=== PATIENT | female | born 1985 ===

== ENCOUNTER 2020-04-28 09:10 | Outpatient (REF) | payer OTHER, SELFPAY | END 2020-04-28 09:11 | disposition home or self-care (01) | LOC: HO.LAB 09:10 | PROVIDERS: Visit Provider Internal Medicine | DX: Z20.822 Contact with and (suspected) exposure to COVID-19 (principal) | CPT/HCPCS: 36415; C9803; U0003 ==

== ENCOUNTER 2020-08-21 12:55 | Outpatient (REF) | payer OTHER, SELFPAY ==
[2020-08-21 13:33] LABS: COVID-19 Test Negative (Negative); IDNOW Serial# 55D5AD1C
== END 2020-08-21 12:56 | disposition home or self-care (01) ==
LOC: HO.LAB 12:55
PROVIDERS: Visit Provider Internal Medicine
DX: Z20.822 Contact with and (suspected) exposure to COVID-19 (principal)
CPT/HCPCS: 36415; 87635; C9803

== ENCOUNTER 2020-11-30 14:46 | Outpatient (REF) | payer OTHER, SELFPAY | END 2020-11-30 14:47 | disposition home or self-care (01) | LOC: HO.LAB 14:46 | PROVIDERS: PCP Internal Medicine; Visit Provider Internal Medicine | DX: Z20.822 Contact with and (suspected) exposure to COVID-19 (principal) | CPT/HCPCS: C9803; U0003; U0005 ==

== ENCOUNTER 2021-01-12 10:02 | Outpatient (REF) | payer OTHER, SELFPAY ==
[2021-01-12 12:27] LABS: MANUAL DIFF FLAG NO
[2021-01-12 12:34] LABS: Basophils Percent Auto 0.3 % (0-2); Eosinophils Absolute Auto 0.2 X10*3/uL (0.0-0.4); Eosinophils Percent Auto 2.1 % (0-4); Hematocrit 38.7 % (37-47); Hemoglobin 12.5 g/dl (12.0-16.0); Imm Gran Abs Auto 0.02 X10*3/uL (0.00-0.03); Imm Gran Pct Auto 0.2 % (0.0-0.4); Lymphocytes Absolute Auto 2.2 X10*3/uL (1.2-4.9); Lymphocytes Percent Auto 22.6 % (20-40); Mean Corpuscular HGB Conc 32.3 g/dl (31.0-35.0); Mean Corpuscular Hemoglobin 26.8 pg (27.0-33.0); Mean Platelet Volume 9.5 fL (9.4-12.3); Monocytes Absolute Auto 0.8 X10*3/uL (0.1-1.2); Monocytes Percent Auto 8.1 % (2-11); Neutrophils Absolute Auto 6.5 X10*3/uL (2.0-8.3); Neutrophils Percent Auto 66.7 % (45-73); Platelet Count 363 X10*3/uL (160-400); Red Blood Count 4.66 X10*6/uL (4.20-5.50); Red Cell Distribution Width 14.3 % (11.0-16.0); White Blood Count 9.8 X10*3/uL (4.8-10.8)
[2021-01-12 12:59] LABS: Alanine Aminotransferase 17 U/L (0-31); Anion Gap 13 (12-20); Aspartate Amino Transferase 18 U/L (5-31); Blood Urea Nitrogen 18 mg/dL (9-16); Calcium 9.8 mg/dL (8.4-10.2); Carbon Dioxide 26 mmol/L (22-29); Chloride 105 mmol/L (96-108); Cholesterol 154 mg/dL; Estimated Glomerular Filt Rate > 60; Glucose Fasting 91 mg/dL (60-99); HDL Cholesterol 78 mg/dL; LDL Cholesterol Calculated 65 mg/dl; Potassium 4.5 mmol/L (3.3-5.1); Sodium 139 mmol/L (135-145); Triglycerides 57 mg/dL
[2021-01-12 13:24] LABS: TSH reflex Free T4 0.29 uIU/mL (0.32-4.0); Vitamin D 25-OH Total 34.3 ng/mL (>30)
[2021-01-12 13:28] LABS: Folate 8.9 ng/mL (> or = 4.0); Vitamin B12 368 pg/mL (200-900)
[2021-01-12 14:11] LABS: Free T4 (Free Thyroxine) 0.97 ng/dL (0.71-1.85)
== END 2021-01-12 10:03 | disposition home or self-care (01) ==
LOC: HO.HMGCLDS 10:02
PROVIDERS: PCP Internal Medicine; Visit Provider Internal Medicine
DX: Z00.01 Encounter for general adult medical examination with abnormal findings (principal); F41.8 Other specified anxiety disorders; I10 Essential (primary) hypertension
CPT/HCPCS: 36415; 80048; 80061; 82306; 82607; 82746; 84439; 84443; 84450; 84460; 85025

== ENCOUNTER 2023-10-28 15:16 | Outpatient (AMB) | payer BC, SELFPAY ==
--- NOTE | 2023-10-28 15:18 | MHC.PC.OV ---
Vital Signs 10/28/23 15:20 Height 4 ft 11.5 in Weight 161 lb BMI 32.0 BP 124/82 Blood Pressure Location Lt brachial Position Sitting Pulse 89 Pulse Source Pulse Oximeter Pulse Oximetry (%) 97 Oxygen Delivery Method Room Air Intake Visit Reasons: Annual PE/Last PE 2020 Intake Note: Pt is here for annual PE. Mammogram and Pap due Allergies No Known Allergies [No Known Allergies*] Allergy (Verified 10/28/23 15:34) Medication List - Last Reconciled 10/28/23 by ELANA Patel cholecalciferol (vitamin D3) 50 mcg PO DAILY dextroamphetamine-amphetamine 30 mg ER (Adderall XR) 1 cap PO QAM diclofenac sodium 1% 2 grams topical QID escitalopram oxalate 20 mg PO DAILY hydroxyzine pamoate 25 mg PO TID PRN levonorgestrel (Mirena) intrauterine lorazepam 0.5 mg PO DAILY PRN polymyxin B sulf-trimethoprim 10,000 unit- 1 mg/mL (Polytrim) 1 drp ophthalmic (eye) QID 7 days valacyclovir 500 mg PO BID Tobacco use date assessed: 10/28/23 Dental Screening Dental Screen Date: 10/28/23 Did you have a dental visit in the last 12 months?: Yes Did you have a dental problem in the last 6 months where you did not have access to dental care?: No Was dental information given to patient?: Patient has dentist HPI HPI Comments History of Present Illness Details Patient is a 38-year-old female who I am meeting for the 1st time in for physical exam. Patient believes that she is up-to-date with tetanus vaccine, do not have records on this, she will sign release so we can obtain them from OBG[facility] at [facility]. Patient has establish care with [facility]. For well woman visits and Pap smears Patient is due for mammogram will order. She has a past medical history significant for: Anxiety and depression-patient currently in the process of finding therapist and psychiatrist. She feels that her anxiety has been in general controlled, however recent life events have caused an increase in anxiety. She denies SI/HI. Would like to wait until she has a psychiatrist before she starts medication for this. Diminished hearing bilaterally: Patient has history of service. Has noticed progressive hearing difficulty over the past several years. Will give referral to speech and hearing. Patient will also be extracted to utilize earwax removal drops. Obesity-patient has history of obesity, has utilize phentermine-topiramate with good effect. Will draw labs to assess kidney and liver function and restart medication if labs appear normal. Left wrist pain-patient works on the computer, has chronic left wrist pain that has gotten progressively worse. Denies tingling or numbness. No trauma to the area. Will obtain x-ray. Will give diclofenac topical gel PFSH Medical History Achilles tendinitis of left lower extremity ADHD (attention deficit hyperactivity disorder), combined type Depression with anxiety Incompetent cervix Obesity (BMI 30.0-34.9) Stillborn, normal Surgical History Hx of tonsillectomy History of cervical cerclage Family History Father Seizure Depression Substance use disorder Mother Depression Mental health disorder Social History Housing: House Patient Tobacco Use Status: Never used Tobacco e-Cigarette/Vaping Use: Never Used service: No Current occupational status: employed Cognitive needs: No Hearing needs: No Vision needs: No Questionnaire PHQ-9 Over the last 2 weeks, how often have you been bothered by any of the following problems? 1. Little interest or pleasure in doing things: several days 2. Feeling down, depressed, or hopeless: several days 3. Trouble falling or staying asleep, or sleeping too much: more than half the days 4. Feeling tired or having little energy: more than half the days 5. Poor appetite or overeating: more than half the days 6. Feeling bad about yourself - or that you are a failure or have let yourself or your family down: several days 7. Trouble concentrating on things, such as reading the newspaper or watching television: several days 8. Moving or speaking so slowly that other people could have noticed. Or the opposite - being so fidgety or restless that you have been moving around a lot more than usual: several days 9. Thoughts that you would be better off or of hurting yourself in some way: not at all Total score: 11 Depression Screening Interpretation: Positive Depression Screening Follow-up: Existing condition (Establishing care with therapy and Psychiatry.) Depression Screening Done: Yes 40938 - PHQ-9 Billing: Yes Source: Developed by Drs. Rashaun Nguyen, Shonda Neil, Villa Aguilera and colleagues, with an educational isis from [employer]. Thrive Questionnaire Date Thrive assessed: 10/28/23 I am a: Patient What is your living situation today?: I have a steady place to live Within the past 12 months, did the food you bought not last and you didn't have the money to get more?: Never true Within the past 12 months, did you worry whether your food would run out before you got money to buy more?: Never true Do you have trouble paying for medicines?: I choose not to answer this question Do you have trouble getting transportation to medical appointments?: No Do you have trouble paying your heating and electricity bill?: I choose not to answer this question Do you have trouble taking care of your child, family member or friend?: No Do you have trouble with day-to-day activities such as bathing, preparing meals, shopping, managing finances, etc.?: I choose not to answer this question Are you currently unemployed and looking for a job?: No Are you interested in more education?: I choose not to answer this question Please select the resources that you would like help with: Housing/Custodial Currently or been in a relationship where the following occur: No concerns reported THRIVE Score: 0 AUDIT C Alcohol Use Questionnaire (AUDIT-C) 1. How often do you have a drink containing alcohol?: Monthly or less 2. How many drinks containing alcohol do you have on a typical day when you are drinking?: 1 or 2 3. How often do you have six or more drinks on one occasion?: Never Total Score: 1 Score Reviewed/Action Taken: No CHAVA-7 AMB Questionnaire CHAVA-7 Date CHAVA - 7 assessed: 10/28/23 Feeling nervous, anxious, or on edge: 2 = More than half the days Not being able to stop or control worryin = More than half the days Worrying too much about different things: 2 = More than half the days Trouble relaxin = Several days Being so restless that it is hard to sit still: 1 = Several days Becoming easily annoyed or irritable: 1 = Several days Feeling afraid as if something awful might happen: 0 = Not at all Total CHAVA-7 score (0-4 normal; 5-9 mild; 10-14 moderate; 15-21 severe): 9 Source: Developed by Drs. Rashaun Nguyen, Shonda Neil, Villa Aguilera and colleagues, with an educational isis from [employer]. CHAVA-7 Assessment Billing CHAVA-7 Assessment Tool: CHAVA-7 Assessment 72491 (Establishing care with therapy and Psychiatry) Review of Systems Const All systems reviewed & are unremarkable except as noted in HPI and below Physical exam (Primary Care) Tobacco/Smoking Status: Tobacco use Status Tobacco use date assessed 06/19/21 10/28/23 15:18 Patient Tobacco Use Status Never used Tobacco 10/28/23 15:18 e-Cigarette/Vaping Use Never Used 10/28/23 15:18 Depression Screening Interpretation: Positive Depression Screening Follow-up: Existing condition (Establishing care with therapy and Psychiatry.) Thrive Assessment: Date of Thrive Assessment Date Thrive assessed 06/19/21 10/28/23 15:18 Currently or been in a relationship where the following occur: No concerns reported Const Other: Appearance: Alert.? Oriented X3.? No acute distress.? Head: Normocephalic, atraumatic, no step-offs or deformities Eyes: Pupils equal, round and reactive to light.? ENT: Pharynx normal.?Scant cerumen impaction bilaterally. Neck: Normal inspection.? Neck supple.?Full ROM. CVS: Normal heart rate and rhythm.? Pulses normal.? Respiratory: No respiratory distress.? Breath sounds normal.? Abdomen: Soft and nontender.? Skin: Skin warm and dry.? Normal skin color.? Normal skin turgor.? Extremities: No lower extremity edema.? No calf ttp. 5/5 strength to bilateral upper and lower extremities Back: No midline tenderness, no C-spine tenderness, full range of motion, no CVA tenderness bilaterally Neuro: Oriented X 3.? No motor deficit.? No sensory deficit. CN 2-12 intact Assessment and Plan Assessment & Plan (1) Physical exam: Comment: Patient believes that she is up-to-date with tetanus vaccine, do not have records on this, she will sign release so we can obtain them from OBGYN at [facility]. Patient has establish care with [facility]. For well woman visits and Pap smears Patient is due for mammogram will order. She has a past medical history significant for: Anxiety and depression-patient currently in the process of finding therapist and psychiatrist. She feels that her anxiety has been in general controlled, however recent life events have caused an increase in anxiety. She denies SI/HI. Would like to wait until she has a psychiatrist before she starts medication for this. Diminished hearing bilaterally: Patient has history of service. Has noticed progressive hearing difficulty over the past several years. Will give referral to speech and hearing. Patient will also be extracted to utilize earwax removal drops. Obesity-patient has history of obesity, has utilize phentermine-topiramate with good effect. Will draw labs to assess kidney and liver function and restart medication phentermine-topiramte. Left wrist pain-patient works on the computer, has chronic left wrist pain that has gotten progressively worse. Denies tingling or numbness. No trauma to the area. Will obtain x-ray. Will give diclofenac topical gel Code(s): Z00.00 - Encounter for general adult medical examination without abnormal findings (2) Left wrist pain: Code(s): M25.532 - Pain in left wrist (3) Decreased hearing of both ears: Code(s): H91.93 - Unspecified hearing loss, bilateral (4) Obesity (BMI 30.0-34.9): Code(s): E66.9 - Obesity, unspecified (5) Depression with anxiety: Comment: ff'd at [facility] Code(s): F41.8 - Other specified anxiety disorders Orders: Orders Vitamin D 25-OH (D2 and D3) Today Z13.21 - Encounter for screening for nutritional disorder Vitamin B6 Today Z13.21 - Encounter for screening for nutritional disorder Vitamin B12 Today Z13.21 - Encounter for screening for nutritional disorder UA CC w/rflx Micro + Cult Today Z13.89 - Encounter for screening for other disorder TSH reflex Free T4 Today Z13.29 - Encounter for screening for other suspected endocrine disorder MM tomosynthesis screening BI Today Z12.31 - Encounter for screening mammogram for malignant neoplasm of breast Lipid Panel Today Z13.220 - Encounter for screening for lipoid disorders Complete Blood Count Auto Diff Today Z13.0 - Encounter for screening for diseases of the blood and blood-forming organs and certain disorders involving the immune mechanism Comprehensive Met. Panel Today Z91.89 - Other specified personal risk factors, not elsewhere classified XR wrist LT 2V Today M25.532 - Pain in left wrist Referrals Speech and Hearing Referral H91.93 - Unspecified hearing loss, bilateral Medications: New phentermine-topiramate 3.75-23 mg ER 1 cap PO DAILY 30 days 30 caps 0RF diclofenac sodium 1% apply to single elbow, wrist or hand; for hand includes palm/fingers/back of hand 2 grams topical QID 100 grams 0RF cholecalciferol (vitamin D3) 50 mcg PO DAILY 90 caps 0RF Coding Level of Care Code New Pt Prev Care 40-64y(38156) Diagnoses Physical exam Z00.00 Left wrist pain M25.532 Decreased hearing of both ears H91.93 Obesity (BMI 30.0-34.9) E66.9 Depression with anxiety F41.8 Additional Codes CHAVA-7 Assessment Billing - CHAVA-7 Assessment Tool: CHAVA-7 Assessment 10274 ([id number]) Time Spent (min) 28
[2023-10-28 15:20] VITALS: BP 124/82; PULSE 89; O2SAT 97; BMI 32.0
== END 2023-10-28 16:50 | disposition home or self-care (01) ==
PROVIDERS: PCP Internal Medicine; Visit Provider Nurse Practitioner Primary Care
DX: Z00.00 Encounter for general adult medical examination without abnormal findings (principal); M25.532 Pain in left wrist; E66.9 Obesity, unspecified; Z68.32 Body mass index [BMI] 32.0-32.9, adult; H91.93 Unspecified hearing loss, bilateral; F41.8 Other specified anxiety disorders
CPT/HCPCS: 99396

== ENCOUNTER 2023-10-30 08:34 | Outpatient (REF) | payer BC, SELFPAY ==
[2023-10-30 10:10] LABS: MANUAL DIFF FLAG NO
[2023-10-30 10:16] LABS: Basophils Percent Auto 0.3 % (0-2); Eosinophils Absolute Auto 0.2 X10*3/uL (0.0-0.4); Hematocrit 39.1 % (37.0-47.0); Imm Gran Abs Auto 0.02 X10*3/uL (0.00-0.03); Imm Gran Pct Auto 0.3 % (0.0-0.4); Lymphocytes Percent Auto 32.4 % (20-40); Mean Corpuscular HGB Conc 33.2 g/dl (31.0-35.0); Mean Corpuscular Hemoglobin 28.5 pg (27.0-33.0); Mean Corpuscular Volume 85.7 fL (80.0-98.0); Mean Platelet Volume 9.7 fL (9.4-12.3); Monocytes Absolute Auto 0.6 X10*3/uL (0.1-1.2); Monocytes Percent Auto 8.8 % (2-11); Neutrophils Absolute Auto 3.4 x10*3/uL (2.0-8.3); Neutrophils Percent Auto 55.2 % (45-73); Platelet Count 302 X10*3/uL (160-400); Red Blood Count 4.56 X10*6/uL (4.20-5.50); Red Cell Distribution Width 13.8 % (11.0-16.0); White Blood Count 6.2 X10*3/uL (4.8-10.8)
[2023-10-30 10:31] LABS: Appearance Urine Clear; Color Urine Yellow; Glucose Urine UA Negative (Negative); Leukocyte Esterase Urine Moderate (2+) (Negative); Nitrite Urine Negative (Negative); PH 5.5 (5.0-9.0); Specific Gravity - Urine 1.025 (1.005-1.025); UMIC TRIGGER UACC YES; Urine Blood Negative (Negative); Urine Ketones Negative (Negative); Urine Protein Negative (Neg-Trace)
[2023-10-30 10:38] LABS: Bacteria Urine 2+ (None Seen); RBC Urine 0-2 /HPF (0-2); UACC Culture Trigger YES; WBC Urine 21-50 /HPF (0-5)
[2023-10-30 10:46] LABS: Alanine Aminotransferase 11 U/L (0-31); Albumin Level 4.5 g/dL (3.5-5.0); Alkaline Phosphatase 66 U/L (39-117); Anion Gap 13 (12-20); Aspartate Amino Transferase 13 U/L (5-31); Bilirubin Total 0.8 mg/dL (0.0-1.0); Blood Urea Nitrogen 20 mg/dL (9-16); Calcium 9.8 mg/dL (8.4-10.2); Carbon Dioxide 24 mmol/L (22-29); Chloride 108 mmol/L (96-108); Cholesterol 135 mg/dL (<200); Estimated Glomerular Filt Rate > 60; Glucose Random 90 mg/dL (60-115); HDL Cholesterol 54 mg/dL (>40); LDL Cholesterol Calculated 74 mg/dL (<100); Potassium 4.2 mmol/L (3.3-5.1); Sodium 141 mmol/L (135-145); Total Protein 7.3 g/dL (6.5-8.0); Triglycerides 38 mg/dL (<150)
[2023-10-30 10:48] LABS: TSH reflex Free T4 0.34 uIU/mL (0.32-4.0)
[2023-10-30 11:12] LABS: Vitamin B12 392 pg/mL (200-900)
[2023-11-03 15:47] LABS: Vitamin D 25-OH, D2 <4 ng/mL; Vitamin D 25-OH, D3 19 ng/mL; Vitamin D 25-OH, Total 19 ng/mL (30-100)
== END 2023-10-30 08:35 | disposition home or self-care (01) ==
LOC: HO.HMGCLDS 08:34
PROVIDERS: PCP Internal Medicine; Visit Provider Nurse Practitioner Primary Care
DX: Z13.0 Encounter for screening for diseases of the blood and blood-forming organs and certain disorders involving the immune mechanism (principal); Z13.220 Encounter for screening for lipoid disorders; Z13.21 Encounter for screening for nutritional disorder; Z13.29 Encounter for screening for other suspected endocrine disorder; Z91.89 Other specified personal risk factors, not elsewhere classified
CPT/HCPCS: 36415; 80053; 80061; 81001; 82306; 82607; 84207; 84443; 85025; 87086

== ENCOUNTER 2024-01-21 10:18 | Outpatient (AMB) | payer BC, SELFPAY ==
--- NOTE | 2024-01-21 11:14 | MHC.OFFWIV ---
Intake Vital Signs 01/21/24 11:16 Height 4 ft 11.5 in Weight 156 lb BMI 31.0 BP 120/80 Blood Pressure Location Rt brachial Position Sitting Pulse 71 Pulse Source Pulse Oximeter Pulse Oximetry (%) 98 Oxygen Delivery Method Room Air Intake Visit Reasons: EP has a lump on her throat Intake Note: Patient here for lump on throat that is hard which she noticed on Friday and last night it became painful. Patient Tobacco Use Status: Never used Tobacco Allergies No Known Allergies [No Known Allergies*] Allergy (Verified 01/21/24 11:18) Do you need a note to return to daycare/school/sports/work: No HPI EP has a lump on her throat HPI Details This note is constructed using voice recognition software. While every effort has been made to ensure accuracy, hotel registration clerk errors may have been included. The patient is a 38 year old female who presents to the clinic today with complaints of painful lump in the inside of her mouth since Friday, with worsening pain. She notes that she has a crown that needs to be removed, and does feel it may be contributing to her symptoms. She noticed a small lump on the inside of her mouth, that seems to have grown slightly and have some redness. She denies fever, chills, cough, shortness of breath, difficulty swallowing. [facility] Medical History (Updated 11/07/23 @ 03:50 by Radha Lion MD) Vitamin D deficiency Achilles tendinitis of left lower extremity Obesity (BMI 30.0-34.9) Depression with anxiety Incompetent cervix ADHD (attention deficit hyperactivity disorder), combined type Stillborn, normal Surgical History Hx of tonsillectomy History of cervical cerclage Family History Father Seizure Depression Substance use disorder Mother Depression Mental health disorder Social History Housing: House Patient Tobacco Use Status: Never used Tobacco e-Cigarette/Vaping Use: Never Used service: No Current occupational status: employed Cognitive needs: No Hearing needs: No Vision needs: No Review of Systems Const All systems reviewed & are unremarkable except as noted in HPI and below Physical Exam Vital Signs: Last Vital Signs Pulse 71 01/21/24 11:16 BP 120/80 01/21/24 11:16 Pulse Ox 98 01/21/24 11:16 Oxygen Delivery Method Room Air 01/21/24 11:16 BMI result Body Mass Index 31.0 Const General: cooperative, healthy appearing, comfortable, no acute distress and alert Orientation/consciousness: patient oriented x3 Limitations: no limitations HEENT Head: Yes normal to inspection and Yes normocephalic Ears: hearing grossly normal bilaterally General nose exam: Normal external nose present Face and sinus: Yes normal facial exam and Yes sinuses nontender Mouth: Normal oral and palatal mucosa present and tongue normal Teeth and gingiva: dentition normal Teeth image: 1. Approximately 3 mm area raised, erythematous, tender to palpation Throat: Yes posterior oropharynx normal Eyes General: appearance normal, both eyes and all related structures Neck Neck: Yes normal visual inspection and Yes full ROM Resp Effort & Inspection: normal respiratory effort and able to speak in complete sentences Auscultation: clear to auscultation bilaterally Cardio Jugular venous distension: no JVD Palpation: normal PMI Rate: regular rate Heart sounds: S1 normal heart sound present, S2 normal heart sound present, no click, no gallops, no murmurs and no rubs Skin General skin exam: no rashes or lesions noted, elasticity normal and turgor normal Neuro General: patient oriented x3 Psych Appearance: grossly normal Mental Status: mental status grossly normal Speech and movement: Normal speech and movement present Affect: normal affect Assessment & Plan Assessment & Plan (1) Dental infection: Code(s): K04.7 - Periapical abscess without sinus Plan: Antibiotics sent to requested pharmacy. Advised patient to take until complete. Advised patient to follow up with worsening or failure to resolve. Plan See above for full details and plan. Medications: New amoxicillin-pot clavulanate 875-125 mg 1 tab PO BID 7 days 14 tabs 0RF Coding Level of Care Code Est Pt Level 3 (04573) Diagnoses Dental infection K04.7
[2024-01-21 11:16] VITALS: BP 120/80; PULSE 71; O2SAT 98; BMI 31.0
== END 2024-01-21 11:37 | disposition home or self-care (01) ==
PROVIDERS: PCP Internal Medicine; Visit Provider Registered Nurse
DX: K04.7 Periapical abscess without sinus (principal)

== ENCOUNTER → 2024-01-21 10:18 | Outpatient (BNVA) | payer BC, SELFPAY | PROVIDERS: PCP Internal Medicine; Visit Provider Registered Nurse ==

== ENCOUNTER 2024-02-26 08:15 | Outpatient (AMB) | payer BC, SELFPAY ==
--- NOTE | 2024-02-26 08:23 | MHC.PC.OV ---
Vital Signs 02/26/24 08:25 Height 4 ft 11.5 in Weight 158 lb BMI 31.4 BP 96/80 Blood Pressure Location Lt brachial Position Sitting Pulse 76 Pulse Source Pulse Oximeter Pulse Oximetry (%) 96 Oxygen Delivery Method Room Air Intake Visit Reasons: panic attacks Intake Note: Pt is here today c/o panic attacks Allergies No Known Allergies [No Known Allergies*] Allergy (Verified 02/29/24 16:53) Medication List - Last Reconciled 02/26/24 by Radha Lion MD levonorgestrel (Mirena) intrauterine Tobacco use date assessed: 02/26/24 Dental Screening Dental Screen Date: 02/26/24 Did you have a dental visit in the last 12 months?: Yes Did you have a dental problem in the last 6 months where you did not have access to dental care?: No Was dental information given to patient?: Patient has dentist HPI panic attacks HPI Details 38-year-old lady here today complaining of frequent panic attacks. Has been diagnosed with ADHD, depression, and in generalized anxiety disorder, previously was being seen by psychiatrist and a therapist several years ago and was placed on Lexapro, bupropion and as needed lorazepam. Patient however has not seen them in 1 year since she lost her insurance. Now has a new insurance from her employer, and has an appointment to see a new psychiatrist on 03/16/24 , Laura Caal as psychiatric nurse practitioner with [facility]. He was noted as well on last fasting labs done that she has low vitamin-D level and elevated vitamin B6. Will need to recheck levels again. Has history of recurrent cold sores, needs a refill prescription for valacyclovir to take as needed for acute attacks [facility] Medical History (Updated 02/29/24 @ 16:59 by Radha Lion MD) Recurrent cold sores Hypervitaminosis B6 Vitamin B6 deficiency Vitamin D deficiency Achilles tendinitis of left lower extremity Obesity (BMI 30.0-34.9) Depression with anxiety Incompetent cervix ADHD (attention deficit hyperactivity disorder), combined type Stillborn, normal Surgical History Hx of tonsillectomy History of cervical cerclage Family History Father Seizure Depression Substance use disorder Mother Depression Mental health disorder Social History Housing: House Patient Tobacco Use Status: Never used Tobacco e-Cigarette/Vaping Use: Never Used service: No Current occupational status: employed Cognitive needs: No Hearing needs: No Vision needs: No Female Reproductive History Menstrual Other: Sees a new press hand, already has an appointment to see them in [address] [place] [address] Questionnaire PHQ-9 Over the last 2 weeks, how often have you been bothered by any of the following problems? 1. Little interest or pleasure in doing things: several days 2. Feeling down, depressed, or hopeless: several days 3. Trouble falling or staying asleep, or sleeping too much: several days 4. Feeling tired or having little energy: several days 5. Poor appetite or overeating: several days 6. Feeling bad about yourself - or that you are a failure or have let yourself or your family down: several days 7. Trouble concentrating on things, such as reading the newspaper or watching television: not at all 8. Moving or speaking so slowly that other people could have noticed. Or the opposite - being so fidgety or restless that you have been moving around a lot more than usual: not at all 9. Thoughts that you would be better off or of hurting yourself in some way: not at all Total score: 6 Depression Screening Interpretation: Positive Depression Screening Follow-up: Existing condition (Establishing care with therapy and Psychiatry.) Depression Screening Done: Yes 19508 - PHQ-9 Billing: Yes Source: Developed by Drs. Rashaun Nguyen, Shonda Neil, Villa Aguilera and colleagues, with an educational isis from [employer]. Thrive Questionnaire Date Thrive assessed: 10/28/23 I am a: Patient What is your living situation today?: I have a steady place to live Within the past 12 months, did the food you bought not last and you didn't have the money to get more?: Never true Within the past 12 months, did you worry whether your food would run out before you got money to buy more?: Never true Do you have trouble paying for medicines?: I choose not to answer this question Do you have trouble getting transportation to medical appointments?: No Do you have trouble paying your heating and electricity bill?: I choose not to answer this question Do you have trouble taking care of your child, family member or friend?: No Do you have trouble with day-to-day activities such as bathing, preparing meals, shopping, managing finances, etc.?: I choose not to answer this question Are you currently unemployed and looking for a job?: No Are you interested in more education?: I choose not to answer this question Please select the resources that you would like help with: None Currently or been in a relationship where the following occur: No concerns reported THRIVE Score: 0 CHAVA-7 AMB Questionnaire CHAVA-7 Date CHAVA - 7 assessed: 02/26/24 Feeling nervous, anxious, or on edge: 1 = Several days Not being able to stop or control worryin = Several days Worrying too much about different things: 1 = Several days Trouble relaxin = Several days Being so restless that it is hard to sit still: 0 = Not at all Becoming easily annoyed or irritable: 1 = Several days Feeling afraid as if something awful might happen: 0 = Not at all Total CHAVA-7 score (0-4 normal; 5-9 mild; 10-14 moderate; 15-21 severe): 5 Source: Developed by Drs. Rashaun Nguyen, Shonda Neil, Villa Aguilera and colleagues, with an educational isis from [employer]. CHAVA-7 Assessment Billing CHAVA-7 Assessment Tool: CHAVA-7 Assessment 25338 Review of Systems Const All systems reviewed & are unremarkable except as noted in HPI and below Physical exam (Primary Care) Vital Signs: Last Vital Signs Pulse 76 02/26/24 08:25 BP 96/80 02/26/24 08:25 Pulse Ox 96 02/26/24 08:25 Oxygen Delivery Method Room Air 02/26/24 08:25 BMI result Body Mass Index 31.4 Tobacco/Smoking Status: Tobacco use Status Tobacco use date assessed 02/26/24 02/26/24 08:28 Patient Tobacco Use Status Never used Tobacco 02/26/24 08:28 e-Cigarette/Vaping Use Never Used 02/26/24 08:28 Depression Screening Interpretation: Positive Depression Screening Follow-up: Existing condition (Establishing care with therapy and Psychiatry.) Thrive Assessment: Date of Thrive Assessment Date Thrive assessed 10/28/23 02/26/24 08:28 Currently or been in a relationship where the following occur: No concerns reported Const General: cooperative, comfortable and no acute distress Orientation/consciousness: patient oriented x3 HENMT Ears: external ears normal General nose exam: Normal external nose present Mouth: Normal oral and palatal mucosa present, oropharynx normal and moist mucous membranes Eyes General: appearance normal, both eyes and all related structures Neck Neck: Yes full ROM, Yes no lymphadenopathy and Yes supple Resp Effort & Inspection: normal respiratory effort and able to speak in complete sentences Auscultation: clear to auscultation bilaterally Cardio Rate: regular rate Rhythm: regular rhythm Heart sounds: S1 normal heart sound present and S2 normal heart sound present GI Inspection: Yes normal to inspection Palpation (GI): Soft to palpation, nontender and no masses Auscultation: normal bowel sounds Neuro General: patient oriented x3, gait normal, tone normal, moves all extremities, Normal light touch and pain sensation and no focal motor deficits Cognition (Neuro): normal cognition Gait exam (Neuro): Normal gait present Motor exam (neuro): 5/5 motor strength present throughout Extrem General: Yes full ROM, Yes no joint enlargement, Yes no pedal edema, Yes no calf tenderness and Yes normal gait Psych Appearance: grossly normal Mental Status: mental status grossly normal Speech and movement: Normal speech and movement present Affect: normal affect Attitude: cooperative Thought process: Normal thought process present Thought content: Normal thought content present Coding Level of Care Code Est Pt Level 4 (00081) Diagnoses Depression with anxiety F41.8 Vitamin D deficiency E55.9 Hypervitaminosis B6 E67.2 Recurrent cold sores B00.1 Additional Codes CHAVA-7 Assessment Billing - CHAVA-7 Assessment Tool: CHAVA-7 Assessment 73937 ([id number]) PHQ-9 - 69713 - PHQ-9 Billing: Yes ([id number]) Assessment & Plan Assessment & Plan (1) Depression with anxiety: Comment: previously seen at [facility] Code(s): F41.8 - Other specified anxiety disorders Category: Medical Plan: Refill prescription sent for lorazepam to take only as needed for acute anxiety attacks patient already has an appointment to see a new psychiatrist on 03/16/2024 (2) Vitamin D deficiency: Code(s): E55.9 - Vitamin D deficiency, unspecified Category: Medical Plan: Repeat vitamin-D level ordered (3) Hypervitaminosis B6: Code(s): 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.2 - Megavitamin-B6 syndrome Category: Medical Plan: Recheck vitamin-D B6 level (4) Recurrent cold sores: Code(s): B00.1 - Herpesviral vesicular dermatitis Category: Medical Plan: Prescription sent for valacyclovir 1000 mg per tablet to take 2 tablets twice a day for 1 day only to take as needed at the 1st sign of a cold sore Orders: Orders Vitamin D 25-OH Total 02/26/24 E55.9 - Vitamin D deficiency, unspecified, R20.0 - Anesthesia of skin, R20.2 - Paresthesia of skin Vitamin B6 02/26/24 E55.9 - Vitamin D deficiency, unspecified, R20.0 - Anesthesia of skin, R20.2 - Paresthesia of skin Medications: New valacyclovir Take at the 1st sign of cold sore 2,000 mg (2 x 1 gram) PO Q12H PRN 4 tabs 3RF Cold sore lorazepam 0.5 mg PO DAILY PRN 30 tabs 0RF anxiety
[2024-02-26 08:25] VITALS: BP 96/80; PULSE 76; O2SAT 96; BMI 31.4
== END 2024-02-26 14:37 | disposition home or self-care (01) ==
PROVIDERS: PCP Internal Medicine; Visit Provider Internal Medicine
DX: F41.8 Other specified anxiety disorders (principal); E55.9 Vitamin D deficiency, unspecified; E67.2 Megavitamin-B6 syndrome; B00.1 Herpesviral vesicular dermatitis

== ENCOUNTER 2024-02-26 08:15 | Outpatient (REF) | payer BC, SELFPAY ==
[2024-02-26 14:26] LABS: Vitamin D 25-OH Total 42.1 ng/mL (>30)
== END 2024-02-26 08:16 | disposition home or self-care (01) ==
LOC: HO.HMGCLDS 08:15
PROVIDERS: PCP Internal Medicine; Visit Provider Internal Medicine
DX: E55.9 Vitamin D deficiency, unspecified (principal); R20.0 Anesthesia of skin; R20.2 Paresthesia of skin; F41.8 Other specified anxiety disorders; E67.2 Megavitamin-B6 syndrome; B00.1 Herpesviral vesicular dermatitis
CPT/HCPCS: 36415; 82306; 84207; 96127

== ENCOUNTER 2024-05-27 13:27 | Emergency (ER) | payer BC, SELFPAY ==
--- NOTE | ~2024-05-27 | XR_ITS ---
EXAMINATION: XR CHEST CLINICAL INFORMATION: Cough, chest pain, rule out pneumonia COMPARISON: None available. TECHNIQUE: 2 views of the chest were obtained. FINDINGS: No consolidation pleural effusion or pneumothorax. Cardiomediastinal silhouette size is normal. Osseous structures are intact. XR/XR chest 2V IMPRESSION: No acute airspace disease. Electronically signed by: Ben Guzman MD 05/27/2024 02:59 PM EST
--- NOTE | 2024-05-27 13:32 | ECG_ITS ---
Test Reason : cp Blood Pressure : */* mmHG Vent. Rate : 125 BPM Atrial Rate : 125 BPM P-R Int : 130 ms QRS Dur : 80 ms QT Int : 272 ms P-R-T Axes : 42 72 -64 degrees QTcB Int : [address] & T wave abnormality, consider inferior ischemia ST & T wave abnormality, consider anterolateral ischemia Abnormal ECG No previous ECGs available Referred By: Daniella Hernandes Electronically Signed By: GABI WARREN MD
[2024-05-27 14:02] VITALS: BP 135/80; PULSE 131; RESP 18; TEMP 39.2; O2SAT 97; BMI 31.8
[2024-05-27 14:24] LABS: MANUAL DIFF FLAG NO
--- OUTSIDE RECORDS SUMMARY | 2024-05-27 14:27 | XMS_ITS | Encounter Summary ---
Author Organization [facility] Address [id number] [place] [id number] Care Team Providers Care Retail Stocker Name Role Phone Radha Lion MD Primary Care Provider Encounter Details Date Type Department Care Team ([facility] Contact Info) Description 05/05/2024 Telephone Obstetrics and Gynecology - [address] [phone] [address] Social History Tobacco Use Types Packs/Day Years Used Date Smoking Tobacco: Never Smokeless Tobacco: Never Alcohol Use Standard Drinks/Week Comments No 0 (1 standard drink = 0.6 oz pur e alcohol) Comments No Sex and Gender Information Value Date Recorded Sex Assigned at Not on file Legal Sex Female 7:34 PM EST Gender Identity Not on file Sexual Orientation Not on file documented as of this encounter Plan of Treatment Upcoming Encounters Date Type Department Care Team ([facility] Contact Info) Description 08/05/2024 8:45 AM EDT Office Visit Obstetrics and Gynecology - [address] [phone] Mayelin Banda [address] documented as of this encounter Visit Diagnoses Not on filedocumented in this encounter Care Teams Retail Stocker Relationship Specialty Start Date End Date Radha Lion MD [address], [place] PCP - General Internal Medicine 07/30/17 documented as of this encounter
--- OUTSIDE RECORDS SUMMARY | 2024-05-27 14:27 | XMS_ITS | Clinical Summary ---
Author Organization [address] Address [address] [place] [phone] Phone Care Team Providers Care Diabetes Territory Manager Name Role Phone Radha Lion MD Primary Care Provider Allergies No known active allergies Medications cholecalciferol (VITAMIN D-3) 50 mcg (2,000 unit) capsule Take 1 capsule (2,000 Units total) by mouth 1 (one) time each day. Active buPROPion XL (WELLBUTRIN XL) 150 mg 24 hr tablet Take 1 tablet (150 mg total) by mouth 1 (one) time each day. 03/16/2024 Active cloNIDine (CATAPRES) 0.1 mg tablet Take 1 tablet (0.1 mg total) by mouth 2 (two) times a day. 03/16/2024 Active LORazepam (ATIVAN) 0.5 mg tablet Take 1 tablet (0.5 mg total) by mouth 1 (one) time each day if needed. for anxiety Max Daily Amount: 0.5 mg Active mirtazapine (REMERON) 7.5 mg tablet Take 1 tablet (7.5 mg total) by mouth at bedtime. 03/16/2024 Active valACYclovir (VALTREX) 500 mg tablet Take 1 tablet (500 mg total) by mouth 1 (one) time each day. 90 tablet 3 03/16/2024 Active escitalopram (LEXAPRO) 20 mg tablet Take 1 tablet by mouth daily. - Oral Active ferrous fumarate (Ferrocite) 324 mg (106 mg iron) tablet Take by mouth. Active amphetamine-dex troamphetamine XR (ADDERALL XR) 5 mg 24 hr capsule Take by mouth. Take 30 mg by mouth every morning. - Oral Active hydrOXYzine pamoate (VISTARIL) 25 mg capsule Take 1 capsule (25 mg total) by mouth 3 (three) times a day if needed for itching. Active loratadine (CLARITIN) 10 mg tablet Take 1 tablet (10 mg total) by mouth 1 (one) time each day. Active Active Problems Problem Noted Date Diagnosed Date Anemia during in third trimester 09/13 Marijuana use 04/12/2020 Overview (03/26/2024): Pt stopped with - only used for N/V not a habitual user Effects of marijuana on fetus and discussed. She will not be allowed to breastfeed at hospital if +UDS at time of delivery. ADD (attention deficit disorder) 03/27/2020 Overview (03/26/2024): Pt rx'd adderal . D/c with + test Was on for approx 2 months Anxiety and depression 03/27/2020 Overview (03/26/2024): Pt was rx'd lexapro, vistaril and ativan by therapist braden ladd. Pt stopped when she found out she was . Has not notified N yet I encouraged pt to do so 06/23/20- pt denies anxiety or depression. She is very happy with . 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 Overview (03/26/2024): Prophylaxis at 36 weeks with Acyclovir 400 mg TID: she is on Sterile speculum exam in labor- or thorough exam of vagina, cervix, vulva ASCUS with positive high risk HPV cervical 11/08 Overview (03/26/2024): 10/27/2019 PAP Ascus, Positive HPV ( Neg 16/18/45) 11/2019- colpo ROMAIN 1 repeat pap in one year Encounters Date Type Department Care Team Description 05/05/2024 Telephone Obstetrics and Gynecology - [address] [phone] Mayelin Banda CNM 03/16/2024 3:30 PM EST Office Visit Obstetrics and Gynecology - [address] [place] [phone] Miriam Lam PA Vaginal itching (Primary Dx); Vaginal odor; Vaginal discharge; Bacterial vaginosis from Last 3 Months Immunizations Name Administration Dates Next Due Rho (D) Immune Globulin 07/31/2020,03/02/2020 Surgical History Surgery Date Site/Laterality Comments OTHER SURGICAL HISTORY N/A PROCEDURE: HISTORICAL CERCLAGE SURGERY; COMMENT: 2020 TONSILLECTOMY ADENOIDECTOMY, BILATERAL MYRINGOTOMY AND TUBES PROCEDURE: [place] TONSILLECTOMY & ADENOIDECTOMY <AGE 10 COLPOSCOPY 11/30/2019 PROCEDURE: [place] COLPOSCOPY ENTIRE VAGINA W/CERVIX IF PRESENT; COMMENT: repeat in 1 yr Medical History Medical History Date Comments Anxiety state DX:Anxiety state Venereal disease DX:Venereal dis ease ASCUS with positive high ris k HPV cervical 11/09/2019 DX:ASCUS with positive high risk HPV cervical Depression DX:Depression Adhd DX:ADHD Type O blood, Rh negative DX:Typ e O blood, Rh negative Anemia during in t hird trimester 09/13/2020 DX:Anemia during i n third trimester hemorrhage 10/2020 DX:Postpar александр hemorrhage Family History Medical History Relation Name Comments Other: epilepsy Father Other: Cardiac disease Maternal Grandmother Arthritis Mother Bipolar disorder Mother Breast cancer Neg Hx Colon cancer Neg Hx Ovarian cancer Neg Hx Relation Name Status Comments Father Maternal Grandmother Mother Alive Social History Tobacco Use Types Packs/Day Years Used Date Smoking Tobacco: Never Smokeless Tobacco: Never Alcohol Use Standard Drinks/Week Comments No 0 (1 standard drink = 0.6 oz pur e alcohol) Comments No Sex and Gender Information Value Date Recorded Sex Assigned at Not on file Legal Sex Female 7:34 PM EST Gender Identity Not on file Sexual Orientation Not on file Obstetrics History Para Term AB IAB SAB Ectopic Multiple Livin g Live Births 6 3 2 1 3 3 2 2 Date Outcome GA Total Labor Labor/2nd/3rd Weight Sex Type Anes PTL Lexy A1 A5 Name Clin SAB SAB SAB SAB SAB SAB 2002 22w 0d SAB Demis e Living Status Comments:IUFD at 22wks Comments:22 week demise 2008 Term 40w 0d 3317 g (117 oz) F Vag-F orcep s Epidur melisa N Darcy whipple Delivery Location:[facility] Comments:CERCLAGE - EL ECTIVE INDUCTION 2020 Term 39w 4d 3204 g (113 oz) F Vag-S pont Epidur al Darcy Little CNM Complications:Other Excessiv e Bleeding Delivery Location:[facility] Comments:Apg 89-9 Last Filed Vital Signs Vital Sign Reading Time Taken Comments Blood Pressure 139/88 03/16/2024 3:31 PM EST Pulse 72 03/16/2024 3:31 PM EST Temperature - - Respiratory Rate - - Oxygen Saturation - - Inhaled Oxygen Concentration - - Weight 72.1 kg (159 lb) 03/16/2024 3:31 PM EST Height 151.1 cm (4' 11.5 ) 08/29/2021 3:33 PM ED T Body Mass Index 31.58 08/29/2021 3:33 PM EDT Plan of Treatment Upcoming Encounters Date Type Department Care Team (Late st Contact Info) Description 08/05/2024 8:45 AM EDT Office Visit Obstetrics and Gynecology - [address] [phone] Mayelin Banda, [address] [id number] Health Maintenance Due Date Last Done Comments Breast Cancer Screening 1983 DTaP,Tdap,and Td Vaccines (1 - Tdap) 10/27/2002 Hepatitis B Vaccines (1 of 3 - 19+ 3-dose series) 10/27/2002 Depression Screening 03/23/2022 Social Influencers of Health Screening 03/23/2022 COVID-19 Vaccine (3 - 2023-2 5 season) 2023 02/16/2021, 01/11/2021 Influenza Vaccine (#1) 2023 Cervical Cancer Screening: HPV 08/29/2026 08/29/2021 HIV Screening Completed 04/10/2020 Hepatitis C Screening Completed 04/10/2020 HIB Vaccines Aged Out No longer eligi ble based on patient's age to complete this topic HPV Vaccines Aged Out No longer eligi ble based on patient's age to complete this topic Hepatitis A Vaccines Aged Out No long er eligible based on patient's age to complete this topic IPV Vaccines Aged Out No longer eligi ble based on patient's age to complete this topic MMR Vaccines Aged Out No longer eligi ble based on patient's age to complete this topic Meningococcal ACWY Vaccine Aged Out N o longer eligible based on patient's age to complete this topic Pneumococcal Vaccine: Pediatrics (0 to 5 Years) and At-Risk Patients (6 to 64 Years) Aged Out No longer eligible b ased on patient's age to complete this topic RSV Immunization Patients Under 20 months Aged Out No longer eligible b ased on patient's age to complete this topic Varicella Vaccines Aged Out No longer eligible based on patient's age to complete this topic Procedures Procedure Name Priority Date/Time Associated Diagnosis Comments TRICHOMONAS VAGINALIS ANTIGEN Routine 03/16/2024 4:03 PM EST Vaginal itching Vaginal odor Vaginal discharge WET PREP, GENITAL Routine 03/16/2024 4:0 3 PM EST Vaginal itching Vaginal odor Vaginal discharge HPV Routine 08/29/2021 HEPATITIS C SCREENING Routine 04/10/2020 HIV SCREENING Routine 04/10/2020 from Last 3 Months or Most Recently Relevant to Health Maintenance Results * Trichomonas vaginalis antigen (03/16/2024 4:03 PM EST) Trichomonas vaginalis Negative Negative 03/16/2024 8:49 PM EST [facility] Swab Vaginal structure / Unknown Non-blood Collection / Unknown 03/16/2024 4:03 PM EST 03/16/2024 4:03 PM EST us [facility] MICROBIOLOGY - GENERAL O RDERABLES Final Result [facility] [address] [place] [address], [place] [phone] * (ABNORMAL) Wet prep, genital (03/16/2024 4:03 PM EST) [facility] Clue Cells, Wet Prep Negative Negative 03/16/2024 8:49 PM EST [facility] Yeast, Wet Prep Positive(A) Negative 03/16/2024 8:49 PM EST [facility] Trichomonas, Wet Prep Indeterminate Negative 03/16/2024 8:49 PM EST [facility] Comment:Refer to Trichomonas antigen. Swab Vaginal structure / Unknown Non-blood Collection / Unknown 03/16/2024 4:03 PM EST 03/16/2024 4:03 PM EST [facility] MICROBIOLOGY - GENERAL O RDERABLES Final Result [facility] [address] [place] [address], * Cervical Cancer Screening: HPV (08/29/2021) [facility] Cervical Cancer Screening: HPV negative, abstracted [facility] Provider HEALTH MAINTENANCE Final Result * HIV Screening (04/10/2020) [facility] HIV Screening abstracted [facility] Provider HEALTH MAINTENANCE Final Result * Hepatitis C Screening (04/10/2020) [facility] Hepatitis C Screening abstracted [facility] Provider HEALTH MAINTENANCE Final Result from Last 3 Months or Most Recently Relevant to Health Maintenance Insurance [address] [address] [address] Care Teams Diabetes Territory Manager Relationship Specialty Start Date End Date Radha Lion MD [address] [place] [address] PCP - General Internal Medicine 07/30/17
[2024-05-27 14:31] LABS: Basophils Percent Auto 0.3 % (0-2); Eosinophils Absolute Auto 0.2 X10*3/uL (0.0-0.4); Eosinophils Percent Auto 2.2 % (0-4); Hematocrit 39.2 % (37.0-47.0); Imm Gran Abs Auto 0.03 X10*3/uL (0.00-0.03); Imm Gran Pct Auto 0.4 % (0.0-0.4); Lymphocytes Absolute Auto 0.5 X10*3/uL (1.2-4.9); Lymphocytes Percent Auto 7.3 % (20-40); Mean Corpuscular HGB Conc 35.7 g/dl (31.0-35.0); Mean Corpuscular Hemoglobin 28.8 pg (27.0-33.0); Mean Corpuscular Volume 80.7 fL (80.0-98.0); Mean Platelet Volume 9.1 fL (9.4-12.3); Monocytes Absolute Auto 0.8 X10*3/uL (0.1-1.2); Monocytes Percent Auto 11.5 % (2-11); Neutrophils Absolute Auto 5.3 x10*3/uL (2.0-8.3); Neutrophils Percent Auto 78.3 % (45-73); Platelet Count 254 X10*3/uL (160-400); Red Blood Count 4.86 X10*6/uL (4.20-5.50); Red Cell Distribution Width 13.6 % (11.0-16.0); White Blood Count 6.7 X10*3/uL (4.8-10.8)
[2024-05-27] MEDS: Acetaminophen 325 MG TABLET 975 MG PO (14:31)
[2024-05-27] MEDS: 0.9 % Sodium Chloride 1,000 ML 999 ML IV (14:32)
--- NOTE | 2024-05-27 14:39 | ED_ITS ---
HPI - Chest Pain General Chief Complaint: Chest Pain Stated Complaint: Chest pain, body aches, cough Time Seen by Provider: 05/27/24 14:06 Source: patient Mode of arrival: ambulatory Limitations: no limitations History of Present Illness ED Provider: Dr. David Schaffer HPI narrative: 38-year-old female with a history of depression, anxiety, ADHD who presents to the emergency department for evaluation of subjective fever, chills, cough productive of thick phlegm, left sided chest pain worse with breathing, fatigue, weakness, body aches with symptoms starting last night and getting worse today. Patient states that she has a pressure-like sensation in the left side of her chest which is not worse with coughing but it was worse with taking a deep breath. She feels short of breath at rest and with exertion. She states she had nausea but no vomiting or diarrhea. She denied abdominal pain. Related Data Home Medications ?Medication ?Instructions ?Recorded ?Confirmed levonorgestrel 21 mcg/24 hr (up to intrauterine 01/12/21 02/26/24 8 years) 52 mg intrauterine device (Mirena) Previous Rx's ?Medication ?Instructions ?Recorded lorazepam 0.5 mg tablet 0.5 mg PO DAILY PRN anxiety #30 02/26/24 tabs valacyclovir 1 gram tablet 2,000 mg (2 x 1 gram) PO Q12H PRN 02/26/24 Cold sore #4 tabs ondansetron 4 mg disintegrating 4 mg PO Q6-8H PRN nausea and 05/27/24 tablet vomiting #14 tabs oseltamivir 75 mg capsule (Tamiflu) 75 mg PO Q12H 5 days #10 caps 05/27/24 Allergies Allergy/AdvReac Type Severity Reaction Status Date / Time No Known Allergies Allergy Verified 05/27/24 14:03 [No Known Allergies*] Review of Systems 2 Review of Systems: Yes all other systems are reviewed and are negative [facility] Past Medical History [facility] Narrative: Social history: Patient denies tobacco use. She drinks alcohol once or twice a month. She occasionally smokes marijuana cigarettes. Medical History (Updated 05/27/24 @ 16:23 by David Schaffer MD) Recurrent cold sores Hypervitaminosis B6 Vitamin B6 deficiency Vitamin D deficiency Achilles tendinitis of left lower extremity Obesity (BMI 30.0-34.9) Depression with anxiety Incompetent cervix ADHD (attention deficit hyperactivity disorder), combined type Stillborn, normal Surgical History Hx of tonsillectomy History of cervical cerclage Family History Family History Father Seizure Depression Substance use disorder Mother Depression Mental health disorder Social History Social History Housing: House Patient Tobacco Use Status: Never used Tobacco e-Cigarette/Vaping Use: Never Used Advance Directives: No Advance Directives Information Provided: No service: No Current occupational status: employed Cognitive needs: No Hearing needs: No Vision needs: No Physical Exam 2 Vital Signs: Vital Signs: Last Vital Signs Temp 102.6 F H 05/27/24 14:02 Pulse 131 H 05/27/24 14:02 Resp 18 05/27/24 14:02 BP 135/80 05/27/24 14:02 Pulse Ox 97 05/27/24 14:02 O2 Del Method Room Air 05/27/24 14:02 BMI result Body Mass Index 31.8 Vital signs revealed a fever of 102.6 degrees F orally, elevated heart rate of 131, normal respiratory rate and blood pressure Exam: General: Awake, alert in no distress patient does not appear to be dyspneic or tachypneic, answers all questions in full sentences Head: Normocephalic, atraumatic EENT: PERRL, Lids normal, sclera normal, conjunctiva normal, nose normal , ears normal, throat without erythema or exudates Neck: Supple, no adenopathy Lung: breath sounds symmetric, no wheezing, rales or rhonchi Chest: symmetric movement, nontender Heart: regular rate and rhythm, normal S1, S2 no murmurs or rubs Abdomen: soft, non-tender, nondistended, normal bowel sounds Back: no vertebral tenderness, no CVAT Extremities: no deformities, moves all extremities symmetrically Neuro: Awake, alert, oriented, normal speech, cranial nerves intact, moves all extremities symmetrically Psych: Pleasant, cooperative Medications Administered Discontinued Medications Generic Name Dose Route Start Last Admin Trade Name Freq PRN Reason Stop Dose Admin Acetaminophen 975 mg 05/27/24 14:06 05/27/24 14:31 Acetaminophen 325 Mg Tablet PO 05/27/24 14:07 975 mg ONCE STA Administration Sodium Chloride 1,000 mls @ 999 mls/hr 05/27/24 14:06 05/27/24 15:51 Ns IV 05/27/24 15:06 Infused .Q1H1M STA Infusion Ketorolac Tromethamine 15 mg 05/27/24 15:02 05/27/24 15:50 Ketorolac Tromethamine 15 Mg/Ml Vial IVPUSH 05/27/24 15:03 15 mg ONCE STA Administration Ondansetron HCl 4 mg 05/27/24 15:02 05/27/24 15:50 Ondansetron Hcl 4 Mg/2 Ml Vial IVPUSH 05/27/24 15:03 4 mg ONCE ONE Administration Medical Decision Making Medical Decision Making [facility] Narrative: 38-year-old female with a history of depression, anxiety, ADHD who presents to the emergency department for evaluation of subjective fever, chills, cough productive of thick phlegm, left anterior , pleuritic/pressure-like chest pain worse with breathing, fatigue, weakness, body aches with symptoms starting last night and getting worse today. Patient's chest pain is worse with breathing but not with coughing. She feels short of breath and has dyspnea on exertion as well. Vital signs revealed fever of 102.6 degrees F, elevated heart rate of 131 beats per minute. Exam was otherwise unremarkable. Differential diagnosis: ?Includes but is not limited to pneumonia, bronchitis, viral syndrome, myocardial infarction, myocardial ischemia, myocarditis, pericarditis, pleuritic chest pain, COVID-19, influenza, RSV, anemia, electrolyte abnormalities Course: My independent interpretation patient's laboratory evaluation is as follows: CBC was normal. PTT was normal. Lactic acid was normal. Quantitative beta-hCG was below detectable limits. Influenza was positive. COVID-19 and RSV were negative. Patient's the test was positive for influenza A. Patient was chest x-ray was unremarkable. Patient's 12 EKG did reveal inverted T-waves in the anterior and inferior leads her troponin was below detectable limits which makes myocardial infarction/myocardial injury/myocarditis less likely. The patient's presentation is consistent with acute influenza A. I did discuss this with the patient and the patient does want to start Tamiflu. She was given her 1st dose of Tamiflu 75 mg here in the emergency department . She was prescribed Tamiflu 75 mg q.12 hours x5 days, Zofran 4 mg ODT every 6-8 hours as needed for nausea and vomiting. She was advised to take Tylenol and ibuprofen for body aches and fever. She was given printed and verbal instructions and discharged home. Admission/Observation Consideration of admission/observation: Escalation of care including admission/observation considered (Yes) Lab Data MDM Lab Attestation statement: I reviewed the patient's lab results. 05/27/24 14:17 Labs: Lab Results 05/27/24 05/27/24 05/27/24 Range/Units 14:16 14:17 14:29 WBC 6.7 (4.8-10.8) X10*3/uL RBC 4.86 (4.20-5.50) X10*6/uL Hgb 14.0 (12.0-16.0) g/dl Hct 39.2 (37.0-47.0) % MCV 80.7 (80.0-98.0) fL MCH 28.8 (27.0-33.0) pg MCHC 35.7 H (31.0-35.0) g/dl RDW 13.6 (11.0-16.0) % Plt Count 254 (160-400) X10*3/uL MPV 9.1 L (9.4-12.3) fL Immature Gran % (Auto) 0.4 (0.0-0.4) % Neut % (Auto) 78.3 H (45-73) % Lymph % (Auto) 7.3 L (20-40) % Knott % (Auto) 11.5 H (2-11) % Eos % (Auto) 2.2 (0-4) % Baso % (Auto) 0.3 (0-2) % Lymph # (Auto) 0.5 L (1.2-4.9) X10*3/uL Knott # (Auto) 0.8 (0.1-1.2) X10*3/uL Eos # (Auto) 0.2 (0.0-0.4) X10*3/uL Baso # (Auto) 0.0 (0.0-0.2) X10*3/uL Abs Immat Gran (auto) 0.03 (0.00-0.03) X10*3/uL Absolute Neuts (auto) 5.3 (2.0-8.3) x10*3/uL Absolute Nucleated RBC 0.000 (0.0-0.012) X10*3/uL Nucleated RBC % (auto) 0.0 (0.0-0.2) /100WBC APTT 32.5 (26.0-36.8) SEC Lactic Acid 1.0 1.0 (0.5-2.0) mmol/L Troponin I High Sens < 2.7 (<3.5-17.0) ng/L TSH 0.26 L (0.32-4.0) uIU/mL Beta HCG, Quant < 2 mIU/mL Influenza Type A (PCR) POSITIVE A (Negative) Influenza Type B (PCR) NEGATIVE (Negative) RSV RNA Qual (PCR) NEGATIVE (Negative) SARS-CoV-2 RNA (RT-PCR) NEGATIVE (Negative) Independent Interpretation I performed an independent interpretation of an: EKG Interpretation: My independent interpretation of the patient's 12 EKG done at 13:33 hours is as follows: Sinus tachycardia with a rate of 125, inverted T-waves leads 2, 3, AVF, V4 through V6, no ST segment elevation, no ST segment depression, no PACs, no PVCs-no old EKG for comparison Radiology Impression Discussion of test interpretation with radiology: I have reviewed the radiologist's reading. Radiologist Impression: 2 views of the chest were obtained. FINDINGS: No consolidation pleural effusion or pneumothorax. Cardiomediastinal silhouette size is normal. Osseous structures are intact. XR/XR chest 2V IMPRESSION: No acute airspace disease. Electronically signed by: Ben Guzman MD 05/27/2024 02:59 PM [facility] [place] Prescription Management I considered prescription management with: Antiviral and Other (Antiemetic: Zofran) Discharge Plan Discharge Clinical Impression: Influenza A, Nausea, Pleuritic chest pain Fatigue Qualifiers: Fatigue type: unspecified Qualified Code(s): R53.83 - Other fatigue Patient Disposition: Home, Self-Care Instructions: Influenza (ED) Additional Instructions: Your chest x-ray revealed no evidence of pneumonia. Your blood work was unremarkable. Your COVID 19 and RSV tests were negative. Your influenza test was positive for influenza A. Influenza A is a virus and it explains all of your symptoms. Influenza can sometimes last 1-2 weeks. There is a medication called Tamiflu which helps reduce the number of days that you were sick. I am starting you on Tamiflu 12 mg every 12 hours for 5 days, you were given your 1st dose here in the emergency department. Take Zofran ODT 4 mg pills, 1 pill dissolved in your mouth every 8 hours as needed for nausea and vomiting. Take ibuprofen 200 mg pills, 2 pills every 6 hours as needed for pain or fever. Take Tylenol (acetaminophen) 500 mg pills, 2 pills every 6 hours as needed for pain or fever. Follow-up with your doctor in 2 days. Please return to the emergency department if your symptoms get worse or if you develop any symptoms that are concerning to you. Prescriptions: New ondansetron 4 mg tablet,disintegrating 4 mg PO Q6-8H PRN (Reason: nausea and vomiting) Qty: 14 0RF oseltamivir [Tamiflu] 75 mg capsule 75 mg PO Q12H 5 Days Qty: 10 0RF No Action Mirena 20 mcg/24 hours (6 yrs) 52 mg intrauterine device intrauterine lorazepam 0.5 mg tablet 0.5 mg PO DAILY PRN (Reason: anxiety) Qty: 30 0RF valacyclovir 1 gram tablet 2,000 mg PO Q12H PRN (Reason: Cold sore) Qty: 4 3RF Rx Instructions: Take at the 1st sign of cold sore Print Language: Indonesian
[2024-05-27 14:43] LABS: Partial Thromboplastin Time 32.5 SEC (26.0-36.8)
[2024-05-27 15:02] LABS: Troponin-I High Sensitivity < 2.7 ng/L (<3.5-17.0)
[2024-05-27 15:31] LABS: Influenza A PCR POSITIVE (Negative); Influenza B PCR NEGATIVE (Negative); Resp Syncy Virus RNA Qual PCR NEGATIVE (Negative); SARS COV2 PCR INHOUSE NEGATIVE (Negative)
[2024-05-27 15:31] LABS: HCG Quantitative < 2 mIU/mL; TSH reflex Free T4 0.26 uIU/mL (0.32-4.0)
[2024-05-27] MEDS: Ketorolac Tromethamine 15 MG/ML VIAL IVPUSH (15:50)
[2024-05-27] MEDS: ondansetron HCL 4 MG/2 ML VIAL IVPUSH (15:50)
[2024-05-27 16:00] VITALS: BP 111/65; PULSE 101; RESP 16; TEMP 37.7; O2SAT 96
[2024-05-27 16:36] LABS: Alanine Aminotransferase 19 U/L (0-31); Albumin Level 4.5 g/dL (3.5-5.0); Alkaline Phosphatase 69 U/L (39-117); Anion Gap 14 (12-20); Aspartate Amino Transferase 21 U/L (5-31); Bilirubin Total 0.8 mg/dL (0.0-1.0); Blood Urea Nitrogen 14 mg/dL (9-16); Calcium 9.5 mg/dL (8.4-10.2); Carbon Dioxide 19 mmol/L (22-29); Chloride 107 mmol/L (96-108); Creatinine Clr Calc Pharmacy 79.4; Estimated Glomerular Filt Rate > 60; Glucose Random 99 mg/dL (60-115); Potassium 3.5 mmol/L (3.3-5.1); Sodium 136 mmol/L (135-145)
[2024-05-27] MEDS: Oseltamivir Phosphate 75 MG CAPSULE PO (16:55)
[2024-05-27 17:01] VITALS: BP 111/65; PULSE 101; RESP 16; TEMP 37.7; O2SAT 96
[2024-05-27 19:54] LABS: Lipase 11 U/L (8-78); Magnesium 1.8 mg/dL (1.6-2.6)
== END 2024-05-27 17:02 | disposition home or self-care (01) ==
PROVIDERS: Emergency Provider Emergency Medicine Emergency Medical Services; PCP Internal Medicine
DX: J10.1 Influenza due to other identified influenza virus with other respiratory manifestations (principal); R07.89 Other chest pain; M79.10 Myalgia, unspecified site; R05.9 Cough, unspecified; R11.0 Nausea; R07.81 Pleurodynia; R53.83 Other fatigue; R01.2 Other cardiac sounds; Z03.818 Encounter for observation for suspected exposure to other biological agents ruled out; Z79.899 Other long term (current) drug therapy
CPT/HCPCS: 0241U; 36415; 71046; 80053; 83605; 83690; 83735; 84439; 84443; 84484; 84702; 85025; 85730; 87040; 93005; 96361; 96374; 96375; 99284; J1885; J2405

== ENCOUNTER → 2024-05-27 13:32 | Outpatient (BNV) | payer BC, SELFPAY | PROVIDERS: Emergency Provider Emergency Medicine Emergency Medical Services; PCP Internal Medicine; Visit Provider Internal Medicine Cardiovascular Disease | DX: R00.0 Tachycardia, unspecified (principal) | CPT/HCPCS: 93010 ==

== ENCOUNTER → 2024-05-27 14:07 | Outpatient (BNV) | payer BC, SELFPAY | PROVIDERS: Emergency Provider Emergency Medicine Emergency Medical Services; PCP Internal Medicine; Visit Provider Radiology Diagnostic Radiology | DX: R05.9 Cough, unspecified (principal); R07.9 Chest pain, unspecified | CPT/HCPCS: 71046 ==

== ENCOUNTER 2024-11-16 09:29 | Outpatient (REF) | payer BC, SELFPAY ==
[2024-11-16 14:01] LABS: Cholesterol 137 mg/dL (<200); HDL Cholesterol 56 mg/dL (>40); Triglycerides 54 mg/dL (<150)
== END 2024-11-16 09:30 | disposition home or self-care (01) ==
LOC: HO.HMGCLDS 09:29
PROVIDERS: PCP Internal Medicine; Visit Provider Internal Medicine
DX: Z00.01 Encounter for general adult medical examination with abnormal findings (principal); H93.13 Tinnitus, bilateral; F41.8 Other specified anxiety disorders; E66.9 Obesity, unspecified; Z68.31 Body mass index [BMI] 31.0-31.9, adult; Z78.9 Other specified health status; Z13.31 Encounter for screening for depression; Z13.39 Encounter for screening examination for other mental health and behavioral disorders; Z13.1 Encounter for screening for diabetes mellitus; Z13.220 Encounter for screening for lipoid disorders
CPT/HCPCS: 36415; 80061; 82947; 96127

== ENCOUNTER 2024-11-16 09:29 | Outpatient (AMB) | payer BC, SELFPAY ==
--- NOTE | 2024-11-16 09:33 | A.OFFPC_ITS ---
Vital Signs 11/16/24 09:35 Height 4 ft 11 in Weight 157 lb BMI 31.7 BP 100/60 Blood Pressure Location Lt brachial Position Sitting Respiration 15 Pulse 73 Pulse Source Pulse Oximeter Temp 98.1 F Temp Source Oral Pulse Oximetry (%) 98 Oxygen Delivery Method Room Air Intake Visit Reasons: Annual PE Intake Note: Pt is here today for her PE Allergies No Known Allergies (No Known Allergies*) Allergy (Verified 11/21/24 17:35) Medication List - Last Reconciled 11/21/24 by Radha Lion MD levonorgestrel (Mirena) intrauterine phentermine 37.5 mg PO DAILY valacyclovir 2,000 mg (2 x 1 gram) PO Q12H PRN Tobacco use date assessed: 11/16/24 Dental Screening Dental Screen Date: 11/16/24 Did you have a dental visit in the last 12 months?: Yes Did you have a dental problem in the last 6 months where you did not have access to dental care?: Yes Was dental information given to patient?: Patient has dentist HPI Annual PE HPI Details - The patient is a 39-year-old female pr esenting today for her physical exam and for follow-up regarding her weight - Overweight: The patient has a goal kirk ght of 135 pounds but finds it difficult due to a sweet tooth . She previously used phentermine successfully before her and wishes to restart it. - history High Vitamin B6 levels: Previo usly noted high levels led to numbness and tingling in hands, prompting cessation of Red Bull consumption. - Tinnitus and diminished hearing: The p atient reports ringing in the ears and diminished hearing, which has been ongoing for years. She experiences difficulty hearing conversations, leading to frustration in social interactions. - Cold sores: Occur approximately once a year, often triggered by stress. The patient requests a refill for her medication to manage outbreaks. - Stress and anxiety: The patient report s significant stress related to financi al issues and home ownership, contributing to anxiety and occasional depression. - Preventative care: The patient is due for a mammogram and hearing test, which have been ordered. She is also due for cholesterol screening. [facility] Medical History (Updated 11/16/24 @ 10:31 by Radha Lion MD) Recurrent cold sores Hypervitaminosis B6 Vitamin B6 deficiency Vitamin D deficiency Achilles tendinitis of left lower extremity Obesity (BMI 30.0-34.9) Depression with anxiety Incompetent cervix ADHD (attention deficit hyperactivity disorder), combined type Stillborn, normal Surgical History Hx of tonsillectomy History of cervical cerclage Family History Father Seizure Depression Substance use disorder Mother Depression Mental health disorder Social History Housing: House Patient Tobacco Use Status: Never used Tobacco e-Cigarette/Vaping Use: Never Used service: No Current occupational status: employed Cognitive needs: No Hearing needs: No Vision needs: Yes Questionnaire PHQ-9 Over the last 2 weeks, how often have you been bothered by any of the following problems? 1. Little interest or pleasure in doing things: several days 2. Feeling down, depressed, or hopeless: several days 3. Trouble falling or staying asleep, or sleeping too much: nearly every day 4. Feeling tired or having little energy: several days 5. Poor appetite or overeating: nearly every day 6. Feeling bad about yourself - or that you are a failure or have let yourself or your family down: several days 7. Trouble concentrating on things, such as reading the newspaper or watching television: several days 8. Moving or speaking so slowly that other people could have noticed. Or the opposite - being so fidgety or restless that you have been moving around a lot more than usual: not at all 9. Thoughts that you would be better off or of hurting yourself in some way: not at all Total score: 11 Depression Screening Interpretation: Positive Depression Screening Done: Yes 89231 - PHQ-9 Billing: Yes Source: Developed by Drs. Rashaun Nguyen, Shonda Neil, Villa Aguilera and colleagues, with an educational isis from [employer]. Thrive Questionnaire Date Thrive assessed: 11/10/24 I am a: Patient What is your living situation today?: I have a steady place to live Within the past 12 months, did the food you bought not last and you didn't have the money to get more?: I choose not to answer this question Within the past 12 months, did you worry whether your food would run out before you got money to buy more?: I choose not to answer this question Do you have trouble paying for medicines?: Yes Do you have trouble getting transportation to medical appointments?: No Do you have trouble paying your heating and electricity bill?: No Do you have trouble taking care of your child, family member or friend?: No Do you have trouble with day-to-day activities such as bathing, preparing meals, shopping, managing finances, etc.?: No Are you currently unemployed and looking for a job?: No Are you interested in more education?: Yes Please select the resources that you would like help with: Paying for medicine Currently or been in a relationship where the following occur: No concerns reported THRIVE Score: 0 AUDIT C Alcohol Use Questionnaire (AUDIT-C) 1. How often do you have a drink containing alcohol?: 2-4 times a month 2. How many drinks containing alcohol do you have on a typical day when you are drinking?: 1 or 2 3. How often do you have six or more drinks on one occasion?: Less than monthly Total Score: 3 Score Reviewed/Action Taken: Yes CHAVA-7 AMB Questionnaire CHAVA-7 Date CHAVA - 7 assessed: 11/16/24 Feeling nervous, anxious, or on edge: 1 = Several days Not being able to stop or control worryin = Several days Worrying too much about different things: 1 = Several days Trouble relaxin = Several days Being so restless that it is hard to sit still: 1 = Several days Becoming easily annoyed or irritable: 1 = Several days Feeling afraid as if something awful might happen: 1 = Several days Total CHAVA-7 score (0-4 normal; 5-9 mild; 10-14 moderate; 15-21 severe): 7 Source: Developed by Drs. Rashaun Nguyen, Shonda Neil, Villa Aguilera and colleagues, with an educational isis from [employer]. CHAVA-7 Assessment Billing CHAVA-7 Assessment Tool: CHAVA-7 Assessment 81194 Review of Systems Eyes Details: [facility] eye care Details: Goes to [facility], up-to-date with Pap smear and pelvic, normal per pt Physical exam (Primary Care) Vital Signs: Last Vital Signs Temp 98.1 F 11/16/24 09:35 Pulse 73 11/16/24 09:35 Resp 15 11/16/24 09:35 BP 100/60 11/16/24 09:35 Pulse Ox 98 11/16/24 09:35 Oxygen Delivery Method Room Air 11/16/24 09:35 BMI result Body Mass Index 31.7 Tobacco/Smoking Status: Tobacco use Status Tobacco use date assessed 11/16/24 11/16/24 09:36 Patient Tobacco Use Status Never used Tobacco 11/16/24 09:36 e-Cigarette/Vaping Use Never Used 11/16/24 09:36 PHQ-9: PHQ-9 Score PHQ-9: Total score 11 11/16/24 10:13 Depression Screening Interpretation: Positive Thrive Assessment: Date of Thrive Assessment Date Thrive assessed 11/10/24 11/16/24 09:36 Currently or been in a relationship where the following occur: No concerns reported Advance Care Planning discussion: Completed/Scanned Date of discussion: 11/16/24 Who was present: Patient Forms completed: Health Care Proxy Time spent: 16-45 minutes Actual minutes spent: 3 Coding Level of Care Code Est Pt Prev Care 40-64y(37760) Diagnoses Annual visit for general adult medical examination with abnormal findings Z00.01 Tinnitus of both ears H93.13 Laterality: bilateral Decreased hearing of both ears H91.93 Depression with anxiety F41.8 Obesity (BMI 30.0-34.9) E66.9 Advance directive declined by patient Z78.9 Additional Codes CHAVA-7 Assessment Billing - CHAVA-7 Assessment Tool: CHAVA-7 Assessment 40270 ([id number]) PHQ-9 - 67181 - PHQ-9 Billing: Yes ([id number]) Vital Signs *Quality* - Advance Care Planning discussion: Completed/Scanned ([id number]) Vital Signs *Quality* - Time spent: 16-45 minutes ([id number]) Assessment & Plan Assessment & Plan (1) Annual visit for general adult medical examination with abnormal findings: Code(s): Z00.01 - Encounter for general adult medical examination with abnormal findings (2) Tinnitus: Code(s): H93.19 - Tinnitus, unspecified ear Qualifiers: Laterality: bilateral Qualified Code(s): H93.13 - Tinnitus, bilateral (3) Decreased hearing of both ears: Code(s): H91.93 - Unspecified hearing loss, bilateral Category: Medical (4) Depression with anxiety: Comment: previously seen at [facility] Code(s): F41.8 - Other specified anxiety disorders Category: Medical (5) Obesity (BMI 30.0-34.9): Code(s): E66.9 - Obesity, unspecified Category: Medical (6) Advance directive declined by patient: Code(s): Z78.9 - Other specified health status Plan: Initiated the conversation about Advanced Directives. Advanced Directives help patients prepare for current and future decisions about their medical treatment and place of care. Discussed with patient that it is a process where a patients current condition and prognosis are reviewed, their wishes for information regarding their illness are elicited, and likely medical dilemmas are presented and options discussed. Healthcare proxy form completed today. The form can be amended as needed, reviewed yearly and make changes as needed Plan The patient will restart phentermine for weight management, starting with a dose of 37.5 mg, previously on it which has helped with her being her appetite and helping her lose weight. She is advised to take it two hours after breakfast and avoid taking it at night to prevent insomnia. The patient should monitor for any side effects such as headaches or chest pain and reduce the dose if these occur. A mammogram and hearing test have been ordered to address preventative care needs. The patient is also due for a cholesterol screening, which was normal last year. She is advised to fast for 12 hours before the cholesterol test. The patient is encouraged to continue avoiding Red Bull to maintain normal Vitamin B6 levels and prevent neurological symptoms. A refill for cold sore medication has been provided, and she is advised to take it at the first sign of an outbre ak. Schedule office visit in 4 weeks for follow-up after starting phentermine Patient was informed and verbally consented to the use of an ambient scribe for clinic note documentation during this visit. Orders: Orders Lipid Panel 11/16/24 Z13.1 - Encounter for screening for diabetes mellitus, Z13.220 - Encounter for screening for lipoid disorders Glucose Fasting 11/16/24 Z13.1 - Encounter for screening for diabetes mellitus, Z13.220 - Encounter for screening for lipoid disorders MM tomosynthesis screening BI 11/16/24 Z12.31 - Encounter for screening mammogram for malignant neoplasm of breast Referrals Speech and Hearing Referral H91.93 - Unspecified hearing loss, bilateral, H93.19 - Tinnitus, unspecified ear Medications: New phentermine must administer 30 minutes before or 1-2 hours after breakfast 37.5 mg PO DAILY 30 tabs 0RF Refilled valacyclovir Take at the 1st sign of cold sore 2,000 mg (2 x 1 gram) PO Q12H PRN 4 tabs 3RF Cold sore
[2024-11-16 09:35] VITALS: BP 100/60; PULSE 73; RESP 15; TEMP 36.7; O2SAT 98; BMI 31.7
--- OUTSIDE RECORDS SUMMARY | 2024-11-16 09:54 | XMS_ITS | Clinical Summary ---
Author Organization [address] Address [address] [place] [address] [place] Villareal [id number] Phone Care Team Providers Care Tableau Developer Name Role Phone Radha Lion MD Primary Care Provider Allergies No known active allergies Medications buPROPion XL (WELLBUTRIN XL) 150 mg 24 [...] time each day if needed. for anxiety Active mirtazapine (REMERON) 7.5 mg tablet Take [...] mouth 1 (one) time each day. Active cholecalciferol (VITAMIN D-3) 50 mcg (2,000 unit) capsule Take 1 capsule (2,000 Units total) by mouth 1 (one) time each day. 90 capsule 3 08/05/2024 Active Active Problems Problem Noted Date Diagnosed [...] ROMAIN 1 repeat pap in one year Immunizations Name Administration Dates Next Due Rho (D) Immune Globulin 07/31/2020,03/02/2020 Surgical History Surgery Date Site/Laterality Comments OTHER SURGICAL HISTORY N/A PROCEDURE: HISTORICAL CERCLAGE SURGERY; COMMENT: 2020 TONSILLECTOMY ADENOIDECTOMY, BILATERAL MYRINGOTOMY AND TUBES PROCEDURE: [place] TONSILLECTOMY & ADENOIDECTOMY <AGE 10 COLPOSCOPY 11/30/2019 PROCEDURE: [place] COLPOSCOPY ENTIRE VAGINA W/CERVIX IF PRESENT; COMMENT: [...] Live Births 6 3 2 1 3 0 3 0 0 2 2 Date Outcome GA Total Labor Labor/2nd/3rd Weight Sex Type Anes PTL Lexy A1 A5 Name Clin SAB SAB SAB SAB SAB SAB 2002 22w 0d SAB Demis e Living Status Comments:IUFD at 22wks Comments:22 week demise 2008 Term 40w 0d 3317 g (117 oz) F Vag-F orcep s Epidur al N Livin neil whipple Delivery Location:[facility] Comments:CERCLAGE - EL ECTIVE INDUCTION 2020 Term 39w 4d 3204 g (113 oz) F Vag-S pont Epidur al Livin g Sidney SARMIENTO Complications:Other Excessiv e Bleeding Delivery Location:[facility] Comments:Apg Last Filed Vital Signs Vital Sign Reading Time Taken Comments Blood Pressure 130/86 08/05/2024 8:47 AM EDT Pulse 71 08/05/2024 8:47 AM EDT Temperature - - Respiratory Rate - - Oxygen Saturation - - Inhaled Oxygen Concentration - - Weight 71.7 kg (158 lb) 08/05/2024 8:47 AM EDT Height 151.1 cm (4' 11.5 ) 08/29/2021 3:33 PM ED T Body Mass Index 31.38 08/29/2021 3:33 PM EDT Plan of Treatment Health Maintenance Due Date Last Done Comments Breast Cancer Screening 1983 DTaP,Tdap,and Td Vaccines (1 - Tdap) 10/27/2002 Hepatitis B Vaccines (1 of 3 - 19+ 3-dose series) 10/27/2002 Social Influencers of Health Screening 03/23/2022 COVID-19 Vaccine (3 2023-2 5 season) 2023 02/16/2021, 01/11/2021 Depression Screening 04/14/2024 Influenza Vaccine (#1) 2024 Cervical Cancer Screening: HPV 08/05/2029 0 08/05/2024, 08/29/2021 HIV Screening Completed 04/10/2020 Hepatitis C [...] patient's age to complete this topic Meningococcal B Vaccine Aged Out No l onger eligible based on patient's age to complete this topic Pneumococcal Vaccine: Pediatrics (0 to 5 Years) and At-Risk Patients (6 to 49 Years) Aged Out No longer eligible b ased on patient's age to complete this topic RSV Immunization Patients Under 20 months Aged Out No longer eligible b ased on patient's age to complete this topic Varicella Vaccines Aged Out No longer eligible based on patient's age to complete this topic Procedures Procedure Name Priority Date/Time Associated Diagnosis Comments HPV WITH REFLEX GENOTYPE Routine 08/05/2024 9:31 AM EDT Encounter for annual routine gynecological examination HEPATITIS C SCREENING Routine 04/10/2020 HIV SCREENING Routine 04/10/2020 from Last 3 Months or Most Recently Relevant to Health Maintenance Results * HPV with reflex genotype (08/05/2024 9:31 AM EDT) HPV Negative Negative LAB MICROBIOLOGY METHOD 08/09/2024 1:06 PM EDT [facility] Brushing/Spatula Cervix uteri structure / Unknown 08/05/2024 9:31 AM EDT 08/06/2024 7:47 AM EDT [facility] MOLECULAR DIAGNOSTICS ORDER SHAY Final Result [facility] [address] [place] [address], * HIV Screening (04/10/2020) HIV Screening abstracted Historical Provider HEALTH MAINTENANCE Final Result * Hepatitis C Screening (04/10/2020) Hepatitis C Screening abstracted Historical Provider HEALTH MAINTENANCE Final Result from Last 3 Months or Most Recently Relevant to Health Maintenance Insurance [facility] Care Teams Tableau Developer Relationship Specialty Start Date End Date Radha Lion MD [address] [place] [address] PCP - General Internal Medicine 07/30/17
== END 2024-11-16 10:35 | disposition home or self-care (01) ==
LOC: HO.HMCC 09:30
PROVIDERS: PCP Internal Medicine; Visit Provider Internal Medicine
DX: Z00.01 Encounter for general adult medical examination with abnormal findings (principal); H93.13 Tinnitus, bilateral; H91.93 Unspecified hearing loss, bilateral; F41.8 Other specified anxiety disorders; E66.9 Obesity, unspecified; Z78.9 Other specified health status; Z68.31 Body mass index [BMI] 31.0-31.9, adult